=== PATIENT | male | born 1985 | race Caucasian/White ===

== ENCOUNTER 2018-02-11 14:13 | Emergency (ER) | payer MEDICAID, OTHER ==
[2018-02-11] MEDS: LIDOCAINE 1% (MDV) 20 ML INJ SC (16:00)
== END 2018-02-11 17:37 | disposition home or self-care (01) ==
LOC: FTE 14:13
DX: L60.0 Ingrowing nail (principal); M79.674 Pain in right toe(s)
CPT/HCPCS: 11750; 99283-25

== ENCOUNTER 2018-02-24 13:49 | Emergency (ER) | payer MEDICAID | END 2018-02-24 16:18 | disposition home or self-care (01) | LOC: FTE 13:49 | DX: L03.031 Cellulitis of right toe (principal); M79.675 Pain in left toe(s) | CPT/HCPCS: 99284; Z7502 ==